=== PATIENT | female | born 1945 | race Caucasian/White ===

== ENCOUNTER → 2022-03-05 | Outpatient (CLI) | payer OTHER | LOC: EMI 10:45 | DX: M51.16 Intervertebral disc disorders with radiculopathy, lumbar region (principal); M48.061 Spinal stenosis, lumbar region without neurogenic claudication; M48.02 Spinal stenosis, cervical region; M50.31 Other cervical disc degeneration, high cervical region | CPT/HCPCS: 72141; 72148 ==